=== PATIENT | female | born 1945 | race Caucasian/White ===

== ENCOUNTER 2018-04-20 11:30 | Emergency (ER) | payer MEDICARE ==
[2018-04-20 11:41] VITALS: TEMP 98.7
--- NOTE | 2018-04-20 12:10 | ED ---
General Adult HPI - General Chief complaint: Syncope Stated complaint: dizziness Time Seen by Provider: 04/20/18 11:44 Source: patient, RN notes reviewed, old records reviewed Mode of arrival: wheelchair Limitations: no limitations - History of Present Illness Initial comments: 72-year-old female presents status post fall. Patient states she had 2 falls this morning. First one she was walking along, lost her balance and fell onto her left hip. She was able to ambulate after this fall. She denies any preceding symptoms, no palpitations or chest pain. She did feel lightheaded after the fall. She has second fall similar circumstances with no specific injury. No head trauma. No neck pain. Patient denies any significant pain complaints, she does have some mild left hip pain. Patient has been eating and drinking normally. No vomiting or diarrhea. She states she has had an unsteady gait for the past 6 months. She does walk with a cane and occasionally loses her footing. She did not lose consciousness with either these episodes. - Related Data Home Medications Medication Instructions Recorded Confirmed Gabapentin [Neurontin] 300 mg PO BID 04/20/18 04/20/18 Venlafaxine HCl ER [Effexor Xr] 150 mg PO DAILY 04/20/18 04/20/18 Venlafaxine HCl [Effexor XR] 75 mg PO DAILY 04/20/18 04/20/18 buPROPion HCL [Wellbutrin SR] 150 mg PO BID 04/20/18 04/20/18 Allergies Allergy/AdvReac Type Severity Reaction Status Date / Time Penicillins AdvReac Rash/Hives Verified 04/20/18 12:53 Review of Systems ROS Statement: Those systems with pertinent positive or pertinent negative responses have been documented in the HPI. ROS Other: All systems not noted in ROS Statement are negative. Past Medical History Past Medical History: Diabetes Mellitus, Hyperlipidemia, Hypertension Additional Past Medical History / Comment(s): Irregular heartbeat, Neuropoathy History of Any Multi-Drug Resistant Organisms: None Reported Past Surgical History: Cholecystectomy, Orthopedic Surgery Past Psychological History: Depression Smoking Status: Former smoker Past Alcohol Use History: None Reported Past Drug Use History: None Reported General Exam Limitations: no limitations General appearance: alert, in no apparent distress Head exam: Present: atraumatic, normocephalic Eye exam: Present: normal appearance, PERRL, EOMI ENT exam: Present: normal exam Neck exam: Present: normal inspection. Absent: tenderness, meningismus Respiratory exam: Present: normal lung sounds bilaterally. Absent: respiratory distress, wheezes, rales Cardiovascular Exam: Present: regular rate, normal rhythm GI/Abdominal exam: Present: soft. Absent: distended, tenderness, guarding Extremities exam: Present: normal inspection, normal capillary refill. Absent: pedal edema Back exam: Present: normal inspection, full ROM. Absent: tenderness Neurological exam: Present: alert, oriented X3, CN II-XII intact, other (No ataxia). Absent: motor sensory deficit Psychiatric exam: Present: normal affect, normal mood Skin exam: Present: warm, dry, intact. Absent: cyanosis, diaphoretic Course Vital Signs 04/20/18 04/20/18 11:36 13:21 Temperature 98.7 F Pulse Rate 99 Pulse Rate [ 82 Sitting] Pulse Rate [ 86 Standing] Pulse Rate [ 80 Supine] Respiratory 18 Rate Blood Pressure 142/63 Blood Pressure 128/66 [Sitting] Blood Pressure 119/71 [Standing] Blood Pressure 125/77 [Supine] O2 Sat by Pulse 96 Oximetry EKG Findings - EKG Comments: EKG Findings:: EKG: Normal sinus rhythm, rate of 88, VT interval 148, QRS duration 82, QTC 404 Medical Decision Making - Medical Decision Making 72-year-old female presents with 2 episodes of lightheadedness and fall. She did have some mild hip pain but was ambulatory after the fall. X-rays of the chest and pelvis were obtained, these were negative for acute bony abnormality. Chest x-ray negative for airspace disease or pneumothorax. Laboratory studies reveal normal CBC, normal CMP, troponin is negative. Urinalysis is clear. She is mildly symptomatic with standing. She is given normal saline bolus and on reevaluation she was asymptomatic, steady on her feet. Gait appears normal. Patient will be discharged home. She will use her walker for increased stability. She will follow-up with her primary care physician. - Lab Data Result diagrams: 04/20/18 11:47 04/20/18 11:47 Lab Results 04/20/18 04/20/18 04/20/18 Range/Units 11:47 11:47 11:47 WBC 9.3 (3.8-10.6) k/uL RBC 4.17 (3.80-5.40) m/uL Hgb 13.7 (11.4-16.0) gm/dL Hct 39.4 (34.0-46.0) % MCV 94.5 (80.0-100.0) fL MCH 32.8 (25.0-35.0) pg MCHC 34.7 (31.0-37.0) g/dL RDW 13.8 (11.5-15.5) % Plt Count 286 (150-450) k/uL Neutrophils % 68 % Lymphocytes % 20 % Monocytes % 5 % Eosinophils % 4 % Basophils % 1 % Neutrophils # 6.3 (1.3-7.7) k/uL Lymphocytes # 1.9 (1.0-4.8) k/uL Monocytes # 0.5 (0-1.0) k/uL Eosinophils # 0.4 (0-0.7) k/uL Basophils # 0.1 (0-0.2) k/uL PT (9.0-12.0) sec INR (<1.2) APTT (22.0-30.0) sec Sodium 141 (137-145) mmol/L Potassium 4.7 (3.5-5.1) mmol/L Chloride 104 (98-107) mmol/L Carbon Dioxide 24 (22-30) mmol/L Anion Gap 13 mmol/L BUN 21 H (7-17) mg/dL Creatinine 0.89 (0.52-1.04) mg/dL Est GFR (CKD-EPI)AfAm 76 (>60 ml/min/1.73 sqM) Est GFR (CKD-EPI)NonAf 66 (>60 ml/min/1.73 sqM) Glucose 156 H (74-99) mg/dL Calcium 10.0 (8.4-10.2) mg/dL Magnesium 1.8 (1.6-2.3) mg/dL Total Bilirubin 0.7 (0.2-1.3) mg/dL AST 28 (14-36) U/L ALT 26 (9-52) U/L Alkaline Phosphatase 70 (38-126) U/L Total Creatine Kinase 63 (30-135) U/L CK-MB (CK-2) 1.6 (0.0-2.4) ng/mL CK-MB (CK-2) Rel Index 2.5 Troponin I <0.012 (0.000-0.034) ng/mL Total Protein 7.5 (6.3-8.2) g/dL Albumin 4.6 (3.5-5.0) g/dL Urine Color Urine Appearance (Clear) Urine pH (5.0-8.0) Ur Specific [place] (1.001-1.035) Urine Protein (Negative) Urine Glucose (UA) (Negative) Urine Ketones (Negative) Urine Blood (Negative) Urine Nitrite (Negative) Urine Bilirubin (Negative) Urine Urobilinogen (<2.0) mg/dL Ur Leukocyte Esterase (Negative) Urine RBC (0-5) /hpf Urine WBC (0-5) /hpf Ur Squamous Epith Cells (0-4) /hpf Urine Mucus (None) /hpf 04/20/18 04/20/18 Range/Units 11:47 12:50 WBC (3.8-10.6) k/uL RBC (3.80-5.40) m/uL Hgb (11.4-16.0) gm/dL Hct (34.0-46.0) % MCV (80.0-100.0) fL MCH (25.0-35.0) pg MCHC (31.0-37.0) g/dL RDW (11.5-15.5) % Plt Count (150-450) k/uL Neutrophils % % Lymphocytes % % Monocytes % % Eosinophils % % Basophils % % Neutrophils # (1.3-7.7) k/uL Lymphocytes # (1.0-4.8) k/uL Monocytes # (0-1.0) k/uL Eosinophils # (0-0.7) k/uL Basophils # (0-0.2) k/uL PT 9.6 (9.0-12.0) sec INR 1.0 (<1.2) APTT 22.2 (22.0-30.0) sec Sodium (137-145) mmol/L Potassium (3.5-5.1) mmol/L Chloride (98-107) mmol/L Carbon Dioxide (22-30) mmol/L Anion Gap mmol/L BUN (7-17) mg/dL Creatinine (0.52-1.04) mg/dL Est GFR (CKD-EPI)AfAm (>60 ml/min/1.73 sqM) Est GFR (CKD-EPI)NonAf (>60 ml/min/1.73 sqM) Glucose (74-99) mg/dL Calcium (8.4-10.2) mg/dL Magnesium (1.6-2.3) mg/dL Total Bilirubin (0.2-1.3) mg/dL AST (14-36) U/L ALT (9-52) U/L Alkaline Phosphatase (38-126) U/L Total Creatine Kinase (30-135) U/L CK-MB (CK-2) (0.0-2.4) ng/mL CK-MB (CK-2) Rel Index Troponin I (0.000-0.034) ng/mL Total Protein (6.3-8.2) g/dL Albumin (3.5-5.0) g/dL Urine Color Yellow Urine Appearance Clear (Clear) Urine pH 5.5 (5.0-8.0) Ur Specific [place] 1.015 (1.001-1.035) Urine Protein Negative (Negative) Urine Glucose (UA) Negative (Negative) Urine Ketones Negative (Negative) Urine Blood Negative (Negative) Urine Nitrite Negative (Negative) Urine Bilirubin Negative (Negative) Urine Urobilinogen <2.0 (<2.0) mg/dL Ur Leukocyte Esterase Small H (Negative) Urine RBC 1 (0-5) /hpf Urine WBC 3 (0-5) /hpf Ur Squamous Epith Cells <1 (0-4) /hpf Urine Mucus Rare H (None) /hpf Disposition Clinical Impression: Orthostatic dizziness Disposition: HOME SELF-CARE Condition: Good Instructions: Syncope (ED) Is patient prescribed a controlled substance at d/c from ED?: No Referrals: Heraclio Pearce DO [Primary Care Provider] - 1-2 days Time of Disposition: 14:10
[2018-04-20 12:19] LABS: Basophils # (A) 0.1 k/uL (0-0.2); Basophils % (A) 1 %; Eosinophils # (A) 0.4 k/uL (0-0.7); Eosinophils % (A) 4 %; HCT 39.4 % (34.0-46.0); HGB 13.7 gm/dL (11.4-16.0); Lymphocytes # (A) 1.9 k/uL (1.0-4.8); Lymphocytes % (A) 20 %; MCH 32.8 pg (25.0-35.0); MCHC 34.7 g/dL (31.0-37.0); MCV 94.5 fL (80.0-100.0); Mean Platelet Volume 7.1; Monocytes # (A) 0.5 k/uL (0-1.0); Monocytes % (A) 5 %; Neutrophils # (A) 6.3 k/uL (1.3-7.7); Neutrophils % (A) 68 %; Platelet Count 286 k/uL (150-450); RBC 4.17 m/uL (3.80-5.40); RDW 13.8 % (11.5-15.5); WBC 9.3 k/uL (3.8-10.6)
[2018-04-20 12:31] LABS: Partial Thromboplastin Time 22.2 sec (22.0-30.0); Prothrombin Time 9.6 sec (9.0-12.0)
[2018-04-20 12:33] LABS: Albumin 4.6 g/dL (3.5-5.0); Total Bilirubin 0.7 mg/dL (0.2-1.3); Total Protein 7.5 g/dL (6.3-8.2)
[2018-04-20 12:39] LABS: Creatine Kinase 63 U/L (30-135)
[2018-04-20 12:45] LABS: Magnesium 1.8 mg/dL (1.6-2.3); Potassium 4.7 mmol/L (3.5-5.1)
[2018-04-20 12:51] LABS: Creatine Kinase MB 1.6 ng/mL (0.0-2.4); Troponin I <0.012 ng/mL (0.000-0.034)
--- NOTE | 2018-04-20 13:08 | XR ---
EXAMINATION TYPE: XR chest 2V DATE OF EXAM: 04/20/2018 COMPARISON: NONE INDICATION: Pain from fall, syncope TECHNIQUE: Frontal and lateral views of the chest are obtained. FINDINGS: The heart size is normal. The pulmonary vasculature is normal. The lungs are clear. IMPRESSION: 1. No acute pulmonary process.
--- NOTE | 2018-04-20 13:08 | XR ---
EXAMINATION TYPE: XR pelvis AP view DATE OF EXAM: 04/20/2018 CLINICAL HISTORY: Pain after fall TECHNIQUE: A single AP view of the pelvis is obtained. COMPARISON: None. FINDINGS: There are bilateral femoral arthroplasties noted. There is no evidence of dislocation or marinelli rdware fracture. Lucency surrounding the acetabular component could relate to particle disease or loo sening. Moderate degenerative changes of the lumbosacral junction are seen. There is no acute fractur e/dislocation evident in the pelvis. The overlying soft tissue appears unremarkable. IMPRESSION: No evidence of acute fracture or dislocation of the pelvis. Lucency around the acetabular components of the arthroplasties could relate to particle disease or loosening. No evidence of hardw are fracture.
[2018-04-20 13:11] LABS: Appearance,Urine Clear (Clear); Bilirubin,Urine Negative (Negative); Blood,Urine Negative (Negative); Color,Urine Yellow; Glucose,Urine (UA) Negative (Negative); Ketones,Urine Negative (Negative); Leukocyte Esterase,Urine Small (Negative); Mucus,Urine Rare /hpf; Nitrite,Urine Negative (Negative); PH, Urine 5.5 (5.0-8.0); Protein,Urine Negative (Negative); RBC,Urine 1 /hpf (0-5); Specific Gravity,Urine 1.015 (1.001-1.035); Squamous Epithelial Cell,Urine <1 /hpf (0-4); Urobilinogen,Urine <2.0 mg/dL (<2.0); WBC,Urine 3 /hpf (0-5)
[2018-04-20] MEDS ORDERED: SODIUM CHLORIDE 0.9% 500 ML IV ONE (13:19)
[2018-04-20 14:23] VITALS: BP 121/66; PULSE 78; RESP 16
== END 2018-04-20 14:20 | disposition home or self-care (01) ==
LOC: EC 11:30
DX: R42 Dizziness and giddiness (principal); M25.552 Pain in left hip; R26.81 Unsteadiness on feet; G62.9 Polyneuropathy, unspecified; F32.9 Major depressive disorder, single episode, unspecified; Z87.891 Personal history of nicotine dependence; Z79.899 Other long term (current) drug therapy; Z88.0 Allergy status to penicillin; W19.XXXA Unspecified fall, initial encounter; Y93.01 Activity, walking, marching and hiking
CPT/HCPCS: 36415; 71046; 72170; 80053; 81001; 82550; 82553; 83735; 84484; 85025; 85610; 85730; 93005; 99284

== ENCOUNTER 2018-07-17 10:04 | Day surgery (SDC) | payer MEDICARE ==
[2018-07-14 09:37] VITALS: BMI 36.0
[~2018-07-17 10:04] MED LIST: LACTATED RINGERS 1,000 ML IV SCH
[2018-07-17] MEDS ORDERED: LIDOCAINE 1% 20 ML VIAL (10MG/ML) FOR IV START INTRADERMA ONE (11:08)
[2018-07-17 11:11] VITALS: TEMP 98.5
[2018-07-17 11:14] LABS: Glucose,Whole Blood 145 mg/dL (75-99)
[2018-07-17] MEDS ORDERED: PROPOFOL 10 MG/ML 20 ML VIAL IV ONE (12:46)
--- NOTE | 2018-07-17 13:23 | P.PCN ---
Date of Procedure: 07/17/18 Procedure(s) Performed: Procedure: Colonoscopy and polypectomy. Preoperative diagnosis: Screening for neoplasia, patient has history of polyps. Postoperative diagnosis: 1. Mild sigmoid diverticulosis with no evidence of acute diverticulitis or strictures. 2. Two polyps in the cecum snared but no large polyps or cancer. Preparation: HalfLytely prep. Sedation: Was provided by anesthesia. Brief clinical history: The patient is a 72-year old female who is scheduled for this evaluation for screening for neoplasia because of history of polyps. Her last exam was in 2012. She has no abdominal complaints, bleeding or anemia. Procedure: With the patient on her left lateral decubitus position and after informed consent and adequate sedation, the perianal area was inspected and it did not show any fissures or fistulas. There were no masses felt on digital rectal examination. The Olympus CFQ 160 AL videocolonoscope was then inserted in the rectum in the usual fashion and advanced to the cecum. There were few small diverticular orifices seen scattered in the sigmoid with no evidence of acute diverticulitis or strictures. 2 small polyps were seen in the cecum close to the right colon which were snared and retrieved by suction but there were no large polyps or cancer. The preparation was less than ideal and there could have been another small polyp or 2 that we could have missed because of the preparation. I retroflexed the endoscope in the rectum before the endoscope was withdrawn. Low-grade internal hemorrhoids were noted but there was no bleeding. The patient tolerated the procedure well. Plan: The patient was reassured. Discussed dietary measures and local care for hemorrhoids. She will follow-up with you as planned and I recommended repeat exam at a 76.
[2018-07-17 13:27] VITALS: BP 138/82; PULSE 82; RESP 18
== END 2018-07-17 14:03 | disposition home or self-care (01) ==
LOC: ORWHC2ENDO 10:04
DX: Z12.11 Encounter for screening for malignant neoplasm of colon (principal); K57.30 Diverticulosis of large intestine without perforation or abscess without bleeding; K64.8 Other hemorrhoids; D12.0 Benign neoplasm of cecum; Z86.010 Personal history of colon polyps; Z79.899 Other long term (current) drug therapy; I10 Essential (primary) hypertension; E78.5 Hyperlipidemia, unspecified; M19.90 Unspecified osteoarthritis, unspecified site; E11.40 Type 2 diabetes mellitus with diabetic neuropathy, unspecified; Z96.643 Presence of artificial hip joint, bilateral; Z88.0 Allergy status to penicillin
CPT/HCPCS: 88305; 45385; J2704

== ENCOUNTER → 2020-01-31 | Outpatient (CLI) | payer MEDICARE ==
--- NOTE | 2020-01-31 15:48 | XR ---
EXAMINATION TYPE: XR chest 2V DATE OF EXAM: 01/31/2020 COMPARISON: 04/20/2018 HISTORY: Positive TB test. TECHNIQUE: Frontal and lateral views of the chest are obtained. FINDINGS: There is no focal air space opacity, pleural effusion, or pneumothorax seen. The cardiac silhouette size is within normal limits. The osseous structures are intact. Cholecystectomy clips a re seen. No cavitary lesions are seen. IMPRESSION: No acute cardiopulmonary process. No radiographic sequela of tuberculosis identified.
== END | disposition home or self-care (01) ==
LOC: RAD 15:13
PROVIDERS: ATTEND Dermatology MOHS-Micrographic Surgery
DX: Z11.1 Encounter for screening for respiratory tuberculosis (principal)
CPT/HCPCS: 71046

== ENCOUNTER 2020-05-26 11:32 | Emergency (ER) | payer MEDICARE ==
[2020-05-26 11:59] VITALS: RESP 16
--- NOTE | 2020-05-26 12:25 | ED ---
Recheck HPI - General Chief Complaint: Recheck/Abnormal Lab/Rx Stated Complaint: covid test Time Seen by Provider: 05/26/20 12:00 Source: patient, RN notes reviewed, old records reviewed Mode of arrival: ambulatory Limitations: no limitations - History of Present Illness Initial Comments: Patient is a 74-year-old female presents return today with complaints of concern for runny nose and a minor cough for the past 2 weeks. She is concerned she may have COVID 19. She reports that "heaviness feeling on her chest sometimes with breathing. She reports her discomfort is 1/10. Patient states that she has history of diabetes and hypertension. She is a nonsmoker. She denies any GI symptoms including nausea vomiting or diarrhea. - Related Data Home Medications Medication Instructions Recorded Confirmed buPROPion HCL [Wellbutrin SR] 150 mg PO BID 04/20/18 05/26/20 Rifampin [Rifadin] 300 mg PO BID 05/26/20 05/26/20 Venlafaxine HCl ER [Effexor Xr] 75 mg PO DAILY 05/26/20 05/26/20 Allergies Allergy/AdvReac Type Severity Reaction Status Date / Time Penicillins AdvReac Rash/Hives Verified 05/26/20 13:12 Review of Systems ROS Statement: Those systems with pertinent positive or pertinent negative responses have been documented in the HPI. ROS Other: All systems not noted in ROS Statement are negative. Past Medical History Past Medical History: Diabetes Mellitus, Hyperlipidemia, Hypertension, Osteoarthritis (OA) Additional Past Medical History / Comment(s): Irregular heartbeat, Neuropoathy, DIET CONTROLLED -DIABETIC , History of Any Multi-Drug Resistant Organisms: None Reported Past Surgical History: Breast Surgery, Cholecystectomy, Hysterectomy, Joint Replacement, Orthopedic Surgery Additional Past Surgical History / Comment(s): RIGHT AND LEFT TOTAL HIP, BREAST BIOPSY Past Anesthesia/Blood Transfusion Reactions: Postoperative Nausea & Vomiting (PONV) Past Psychological History: Depression Smoking Status: Never smoker Past Alcohol Use History: None Reported Past Drug Use History: None Reported - Past Family History Mother Family Medical History: No Reported History General Exam - General Exam Comments Initial Comments: 74 year old female, no distress. Limitations: no limitations General appearance: alert, in no apparent distress Head exam: Present: atraumatic, normocephalic, normal inspection Eye exam: Present: normal appearance, PERRL, EOMI. Absent: scleral icterus, conjunctival injection, periorbital swelling ENT exam: Present: normal exam, mucous membranes moist Neck exam: Present: normal inspection. Absent: tenderness, meningismus, lymphadenopathy Respiratory exam: Present: normal lung sounds bilaterally. Absent: respiratory distress, wheezes, rales, rhonchi, stridor Cardiovascular Exam: Present: regular rate, normal rhythm, normal heart sounds. Absent: systolic murmur, diastolic murmur, rubs, gallop, clicks GI/Abdominal exam: Present: soft, normal bowel sounds. Absent: distended, tenderness, guarding, rebound, rigid Extremities exam: Present: normal inspection, full ROM, normal capillary refill. Absent: tenderness, pedal edema, joint swelling, calf tenderness Back exam: Present: normal inspection Neurological exam: Present: alert Psychiatric exam: Present: normal affect, normal mood Skin exam: Present: warm, dry, intact, normal color. Absent: rash Course Vital Signs 05/26/20 05/26/20 05/26/20 11:56 12:53 13:18 Temperature 98.2 F Pulse Rate 89 75 Respiratory 16 16 16 Rate Blood Pressure 130/73 123/60 O2 Sat by Pulse 97 99 Oximetry 05/26/20 05/26/20 14:00 14:40 Temperature 98.1 F Pulse Rate 84 73 Respiratory 16 16 Rate Blood Pressure 123/71 128/67 O2 Sat by Pulse 99 100 Oximetry Medical Decision Making - Medical Decision Making 74-year-old female presents emergency department today for concern for needing a covert test. She reports a runny nose general fatigue and discomfort in the chest with breathing and is time for the past 2 weeks. At this time patient's labwork was reviewed and unremarkable. She was APPROPRIATE. She has normal vital signs and no fever. - Lab Data Result diagrams: 05/26/20 12:50 05/26/20 12:50 Lab Results 05/26/20 05/26/20 05/26/20 Range/Units 12:30 12:50 12:50 WBC 7.8 (3.8-10.6) k/uL RBC 4.05 (3.80-5.40) m/uL Hgb 13.1 (11.4-16.0) gm/dL Hct 38.9 (34.0-46.0) % MCV 96.1 (80.0-100.0) fL MCH 32.4 (25.0-35.0) pg MCHC 33.7 (31.0-37.0) g/dL RDW 13.8 (11.5-15.5) % Plt Count 232 (150-450) k/uL Neutrophils % 67 % Lymphocytes % 18 % Monocytes % 6 % Eosinophils % 5 % Basophils % 1 % Neutrophils # 5.3 (1.3-7.7) k/uL Lymphocytes # 1.4 (1.0-4.8) k/uL Monocytes # 0.5 (0-1.0) k/uL Eosinophils # 0.4 (0-0.7) k/uL Basophils # 0.1 (0-0.2) k/uL PT 9.6 (9.0-12.0) sec INR 0.9 (<1.2) APTT 23.1 (22.0-30.0) sec D-Dimer 0.48 (<0.60) mg/L FEU Sodium (137-145) mmol/L Potassium (3.5-5.1) mmol/L Chloride (98-107) mmol/L Carbon Dioxide (22-30) mmol/L Anion Gap mmol/L BUN (7-17) mg/dL Creatinine (0.52-1.04) mg/dL Est GFR (CKD-EPI)AfAm (>60 ml/min/1.73 sqM) Est GFR (CKD-EPI)NonAf (>60 ml/min/1.73 sqM) Glucose (74-99) mg/dL Plasma Lactic Acid Juan (0.7-2.0) mmol/L Calcium (8.4-10.2) mg/dL Magnesium (1.6-2.3) mg/dL Ferritin (10.0-291.0) ng/mL Total Bilirubin (0.2-1.3) mg/dL AST (14-36) U/L ALT (4-34) U/L Alkaline Phosphatase (38-126) U/L Lactate Dehydrogenase (313-618) U/L Troponin I (0.000-0.034) ng/mL C-Reactive Protein (<10.0) mg/L Total Protein (6.3-8.2) g/dL Albumin (3.5-5.0) g/dL Procalcitonin (0.02-0.09) ng/mL Coronavirus (PCR) Not Detected (Not Detected) 05/26/20 05/26/20 05/26/20 Range/Units 12:50 12:50 12:50 WBC (3.8-10.6) k/uL RBC (3.80-5.40) m/uL Hgb (11.4-16.0) gm/dL Hct (34.0-46.0) % MCV (80.0-100.0) fL MCH (25.0-35.0) pg MCHC (31.0-37.0) g/dL RDW (11.5-15.5) % Plt Count (150-450) k/uL Neutrophils % % Lymphocytes % % Monocytes % % Eosinophils % % Basophils % % Neutrophils # (1.3-7.7) k/uL Lymphocytes # (1.0-4.8) k/uL Monocytes # (0-1.0) k/uL Eosinophils # (0-0.7) k/uL Basophils # (0-0.2) k/uL PT (9.0-12.0) sec INR (<1.2) APTT (22.0-30.0) sec D-Dimer (<0.60) mg/L FEU Sodium 138 (137-145) mmol/L Potassium 4.1 (3.5-5.1) mmol/L Chloride 107 (98-107) mmol/L Carbon Dioxide 24 (22-30) mmol/L Anion Gap 7 mmol/L BUN 22 H (7-17) mg/dL Creatinine 0.85 (0.52-1.04) mg/dL Est GFR (CKD-EPI)AfAm 79 (>60 ml/min/1.73 sqM) Est GFR (CKD-EPI)NonAf 68 (>60 ml/min/1.73 sqM) Glucose 191 H (74-99) mg/dL Plasma Lactic Acid Juan 1.2 (0.7-2.0) mmol/L Calcium 9.5 (8.4-10.2) mg/dL Magnesium 1.8 (1.6-2.3) mg/dL Ferritin 178.6 (10.0-291.0) ng/mL Total Bilirubin 0.8 (0.2-1.3) mg/dL AST 20 (14-36) U/L ALT 17 (4-34) U/L Alkaline Phosphatase 87 (38-126) U/L Lactate Dehydrogenase 478 (313-618) U/L Troponin I <0.012 (0.000-0.034) ng/mL C-Reactive Protein 7.8 (<10.0) mg/L Total Protein 7.2 (6.3-8.2) g/dL Albumin 4.3 (3.5-5.0) g/dL Procalcitonin (0.02-0.09) ng/mL Coronavirus (PCR) (Not Detected) 05/26/20 Range/Units 12:50 WBC (3.8-10.6) k/uL RBC (3.80-5.40) m/uL Hgb (11.4-16.0) gm/dL Hct (34.0-46.0) % MCV (80.0-100.0) fL MCH (25.0-35.0) pg MCHC (31.0-37.0) g/dL RDW (11.5-15.5) % Plt Count (150-450) k/uL Neutrophils % % Lymphocytes % % Monocytes % % Eosinophils % % Basophils % % Neutrophils # (1.3-7.7) k/uL Lymphocytes # (1.0-4.8) k/uL Monocytes # (0-1.0) k/uL Eosinophils # (0-0.7) k/uL Basophils # (0-0.2) k/uL PT (9.0-12.0) sec INR (<1.2) APTT (22.0-30.0) sec D-Dimer (<0.60) mg/L FEU Sodium (137-145) mmol/L Potassium (3.5-5.1) mmol/L Chloride (98-107) mmol/L Carbon Dioxide (22-30) mmol/L Anion Gap mmol/L BUN (7-17) mg/dL Creatinine (0.52-1.04) mg/dL Est GFR (CKD-EPI)AfAm (>60 ml/min/1.73 sqM) Est GFR (CKD-EPI)NonAf (>60 ml/min/1.73 sqM) Glucose (74-99) mg/dL Plasma Lactic Acid Juan (0.7-2.0) mmol/L Calcium (8.4-10.2) mg/dL Magnesium (1.6-2.3) mg/dL Ferritin (10.0-291.0) ng/mL Total Bilirubin (0.2-1.3) mg/dL AST (14-36) U/L ALT (4-34) U/L Alkaline Phosphatase (38-126) U/L Lactate Dehydrogenase (313-618) U/L Troponin I (0.000-0.034) ng/mL C-Reactive Protein (<10.0) mg/L Total Protein (6.3-8.2) g/dL Albumin (3.5-5.0) g/dL Procalcitonin 0.06 (0.02-0.09) ng/mL Coronavirus (PCR) (Not Detected) 05/26/20 12:37 EKG shows normal sinus rhythm normal EKG. Ventricular rate 81 bpm. Pulse 154 ms. QRS duration is 74 ms. QT QTc is 382/443 ms. - Radiology Data Radiology results: report reviewed Chest x-ray shows chronic changes without any evidence of acute pulmonary disease. Disposition Clinical Impression: Fatigue, Rhinorrhea Disposition: HOME SELF-CARE Condition: Good Instructions (If sedation given, give patient instructions): Fatigue (ED) Additional Instructions: Please use medication as discussed such as tylenol and nasal decongestant spray. Please follow up with family doctor if symptoms have not improved over the next two days. Please return to the emergency room if your symptoms increase or worsen or for any other concerns. Is patient prescribed a controlled substance at d/c from ED?: No Referrals: Heraclio Pearce DO [Primary Care Provider] - 1-2 days Time of Disposition: 14:26
[2020-05-26 13:08] LABS: Basophils # (A) 0.1 k/uL (0-0.2); Basophils % (A) 1 %; Eosinophils # (A) 0.4 k/uL (0-0.7); Eosinophils % (A) 5 %; HCT 38.9 % (34.0-46.0); HGB 13.1 gm/dL (11.4-16.0); Lymphocytes # (A) 1.4 k/uL (1.0-4.8); Lymphocytes % (A) 18 %; MCH 32.4 pg (25.0-35.0); MCHC 33.7 g/dL (31.0-37.0); MCV 96.1 fL (80.0-100.0); Mean Platelet Volume 7.8; Monocytes # (A) 0.5 k/uL (0-1.0); Monocytes % (A) 6 %; Neutrophils # (A) 5.3 k/uL (1.3-7.7); Neutrophils % (A) 67 %; Platelet Count 232 k/uL (150-450); RBC 4.05 m/uL (3.80-5.40); RDW 13.8 % (11.5-15.5); WBC 7.8 k/uL (3.8-10.6)
[2020-05-26 13:20] LABS: Albumin 4.3 g/dL (3.5-5.0); C Reactive Protein 7.8 mg/L (<10.0); Calcium 9.5 mg/dL (8.4-10.2); Magnesium 1.8 mg/dL (1.6-2.3); Potassium 4.1 mmol/L (3.5-5.1); Total Bilirubin 0.8 mg/dL (0.2-1.3); Total Protein 7.2 g/dL (6.3-8.2)
[2020-05-26 13:25] LABS: D-Dimer 0.48 mg/L FEU (<0.60); INR 0.9 (<1.2); Partial Thromboplastin Time 23.1 sec (22.0-30.0); Prothrombin Time 9.6 sec (9.0-12.0)
--- NOTE | 2020-05-26 13:26 | XR ---
EXAMINATION TYPE: XR chest 1V portable DATE OF EXAM: 05/26/2020 HISTORY: Shortness of breath. COMPARISON: 01/31/2020 TECHNIQUE: Single view of the chest is submitted. FINDINGS: Demonstrated are scattered senescent parenchymal change. There is no evidence for focal infiltrate. The heart is stable. Hilar and mediastinal structures are within normal limits. Degenerative changes are seen of the dorsal spine. IMPRESSION: 1. Chronic changes without evidence for acute pulmonary disease.
[2020-05-26 14:41] VITALS: BP 128/67; PULSE 73; TEMP 98.1
[2020-05-26 23:26] LABS: Ferritin 178.6 ng/mL (10.0-291.0)
== END 2020-05-26 14:40 | disposition home or self-care (01) ==
LOC: EC 11:32
DX: J34.89 Other specified disorders of nose and nasal sinuses (principal); R53.83 Other fatigue; Z20.828 Contact with and (suspected) exposure to other viral communicable diseases; E11.9 Type 2 diabetes mellitus without complications; F32.9 Major depressive disorder, single episode, unspecified; Z79.899 Other long term (current) drug therapy; Z88.0 Allergy status to penicillin
CPT/HCPCS: 36415; 93005; 85379; 80053; 82728; 83605; 83615; 83735; 84484; 85025; 85610; 85730; 86140; 87040; 84145; 71045; 99284; U0003

== ENCOUNTER 2020-08-23 04:35 | Emergency (ER) | payer MEDICARE ==
[2020-08-23 04:41] VITALS: TEMP 99
[2020-08-23] MEDS ORDERED: MORPHINE SULFATE 4 MG/ML SYRINGE IV STA (05:41)
[2020-08-23 06:12] LABS: Basophils % (A) 0 %; Eosinophils # (A) 0.1 k/uL (0-0.7); Eosinophils % (A) 1 %; HGB 11.1 gm/dL (11.4-16.0); Lymphocytes # (A) 1.4 k/uL (1.0-4.8); Lymphocytes % (A) 12 %; MCH 30.6 pg (25.0-35.0); MCHC 33.5 g/dL (31.0-37.0); MCV 91.3 fL (80.0-100.0); Mean Platelet Volume 7.5; Monocytes # (A) 0.7 k/uL (0-1.0); Monocytes % (A) 6 %; Neutrophils # (A) 9.9 k/uL (1.3-7.7); Neutrophils % (A) 81 %; Platelet Count 310 k/uL (150-450); Poikilocytosis Slight; RBC 3.62 m/uL (3.80-5.40); RDW 13.9 % (11.5-15.5); WBC 12.3 k/uL (3.8-10.6)
[2020-08-23 06:38] LABS: Albumin 3.8 g/dL (3.5-5.0); Calcium 9.4 mg/dL (8.4-10.2); Potassium 4.2 mmol/L (3.5-5.1); Total Bilirubin 0.7 mg/dL (0.2-1.3); Total Protein 6.9 g/dL (6.3-8.2); Uric Acid 5.4 mg/dL (3.7-7.4)
[2020-08-23 07:17] LABS: C Reactive Protein 201.1 mg/L (<10.0)
[2020-08-23] MEDS ORDERED: predniSONE 20 MG TAB PO STA (07:42)
[2020-08-23] MEDS ORDERED: CEPHALEXIN 500 MG CAP PO STA (07:43)
[2020-08-23] MEDS ORDERED: GABAPENTIN 300 MG CAP PO STA (07:43)
--- NOTE | 2020-08-23 07:49 | ED ---
General Adult HPI - General Chief complaint: Extremity Injury, Lower Stated complaint: Foot pain Time Seen by Provider: 08/23/20 04:44 Source: patient, EMS Mode of arrival: EMS Limitations: physical limitation - History of Present Illness Initial comments: This patient is a 75-year-old woman who presents with complaint of Bilateral forefoot pain. She states that it had come on gradually over the past 3-4 days. She has also noticed that the area is becoming very tender. She is having pain when she attempts to walk. No systemic symptoms. No fever or chills. No chest pain, palpitations, dyspnea or cough. No abdominal pain, nausea or vomiting. She has not had weight change. Onset/Timin -: days(s) Location: left, right, lower extremity Radiation: non-radiation Quality: aching Consistency: constant Improves with: none Worsens with: other (Walking) Associated Symptoms: denies other symptoms Treatments Prior to Arrival: none - Related Data Home Medications Medication Instructions Recorded Confirmed buPROPion HCL [Wellbutrin SR] 150 mg PO BID 04/20/18 05/26/20 Venlafaxine HCl ER [Effexor Xr] 75 mg PO DAILY 05/26/20 05/26/20 rifAMPin [Rifadin] 300 mg PO BID 05/26/20 05/26/20 Previous Rx's Medication Instructions Recorded Sulfamethox-Tmp 800-160Mg [Bactrim 1 each PO Q12HR #14 tab 08/23/20 Ds] predniSONE 60 mg PO DAILY #30 tab 08/23/20 Allergies Allergy/AdvReac Type Severity Reaction Status Date / Time Penicillins AdvReac Rash/Hives Verified 08/23/20 04:41 Review of Systems ROS Statement: Those systems with pertinent positive or pertinent negative responses have been documented in the HPI. ROS Other: All systems not noted in ROS Statement are negative. Constitutional: Denies: fever, chills Respiratory: Denies: cough, dyspnea Cardiovascular: Denies: chest pain, palpitations, orthopnea, edema, syncope Gastrointestinal: Denies: abdominal pain, nausea, vomiting, diarrhea Genitourinary: Denies: dysuria, hematuria Musculoskeletal: Reports: as per HPI, arthralgia. Denies: back pain Skin: Denies: rash Neurological: Denies: headache, weakness, numbness Past Medical History Past Medical History: Diabetes Mellitus, Hyperlipidemia, Hypertension, Osteoa rthritis (OA) Additional Past Medical History / Comment(s): Irregular heartbeat, Neuropoathy, DIET CONTROLLED -DIABETIC , History of Any Multi-Drug Resistant Organisms: None Reported Past Surgical History: Breast Surgery, Cholecystectomy, Hysterectomy, Joint Replacement, Orthopedic Surgery Additional Past Surgical History / Comment(s): RIGHT AND LEFT TOTAL HIP, BREAST BIOPSY Past Anesthesia/Blood Transfusion Reactions: Postoperative Nausea & Vomiting (PONV) Past Psychological History: Depression Smoking Status: Never smoker Past Alcohol Use History: None Reported Past Drug Use History: None Reported - Past Family History Mother Family Medical History: No Reported History General Exam Limitations: physical limitation General appearance: alert, in no apparent distress Head exam: Present: atraumatic, normocephalic Eye exam: Present: normal appearance. Absent: scleral icterus, conjunctival inj ection ENT exam: Present: normal oropharynx Neck exam: Present: normal inspection, full ROM Respiratory exam: Present: normal lung sounds bilaterally. Absent: respiratory distress, wheezes, rales, rhonchi, stridor Cardiovascular Exam: Present: regular rate, normal rhythm, normal heart sounds. Absent: systolic murmur, diastolic murmur, rubs, gallop GI/Abdominal exam: Present: soft. Absent: distended, tenderness, guarding, rebound, mass Extremities exam: Present: tenderness (To the bilateral forefoot, especially MTP joint), normal capillary refill. Absent: pedal edema, calf tenderness Back exam: Present: normal inspection. Absent: CVA tenderness (R), CVA tenderness (L) Neurological exam: Present: alert. Absent: motor sensory deficit Skin exam: Present: warm, dry, intact, erythema (Mild erythema over first MTP joint bilaterally). Absent: rash Course Vital Signs 08/23/20 08/23/20 08/23/20 04:37 06:00 07:50 Temperature 99.0 F Pulse Rate 102 H 97 90 Respiratory 16 16 18 Rate Blood Pressure 124/60 134/66 119/66 O2 Sat by Pulse 94 L 99 100 Oximetry Medical Decision Making - Medical Decision Making Patient 75-year-old woman presenting with bilateral forefoot pain. No definite diagnosis here but suspect inflammatory condition possibly gout. At this point not clinically resembling septic arthritis. I discussed overnight admission for further evaluation, but patient states that this point she is feeling better. Patient started with medication and discussed appropriate further care and follow-up. - Lab Data Result diagrams: 08/23/20 05:48 08/23/20 05:48 Lab Results 08/23/20 08/23/20 Range/Units 05:48 05:48 WBC 12.3 H (3.8-10.6) k/uL RBC 3.62 L (3.80-5.40) m/uL Hgb 11.1 L (11.4-16.0) gm/dL Hct 33.0 L (34.0-46.0) % MCV 91.3 (80.0-100.0) fL MCH 30.6 (25.0-35.0) pg MCHC 33.5 (31.0-37.0) g/dL RDW 13.9 (11.5-15.5) % Plt Count 310 (150-450) k/uL Neutrophils % 81 % Lymphocytes % 12 % Monocytes % 6 % Eosinophils % 1 % Basophils % 0 % Neutrophils # 9.9 H (1.3-7.7) k/uL Lymphocytes # 1.4 (1.0-4.8) k/uL Monocytes # 0.7 (0-1.0) k/uL Eosinophils # 0.1 (0-0.7) k/uL Basophils # 0.0 (0-0.2) k/uL Poikilocytosis Slight Sodium 133 L (137-145) mmol/L Potassium 4.2 (3.5-5.1) mmol/L Chloride 100 (98-107) mmol/L Carbon Dioxide 26 (22-30) mmol/L Anion Gap 7 mmol/L BUN 18 H (7-17) mg/dL Creatinine 0.87 (0.52-1.04) mg/dL Est GFR (CKD-EPI)AfAm 77 (>60 ml/min/1.73 sqM) Est GFR (CKD-EPI)NonAf 66 (>60 ml/min/1.73 sqM) Glucose 246 H (74-99) mg/dL Uric Acid 5.4 (3.7-7.4) mg/dL Calcium 9.4 (8.4-10.2) mg/dL Total Bilirubin 0.7 (0.2-1.3) mg/dL AST 17 (14-36) U/L ALT 13 (4-34) U/L Alkaline Phosphatase 76 (38-126) U/L C-Reactive Protein 201.1 H (<10.0) mg/L Total Protein 6.9 (6.3-8.2) g/dL Albumin 3.8 (3.5-5.0) g/dL Disposition Clinical Impression: Polyarthralgia Disposition: HOME SELF-CARE Condition: Fair Instructions (If sedation given, give patient instructions): Arthralgia (ED) Prescriptions: Sulfamethox-Tmp 800-160Mg [Bactrim Ds] 1 each PO Q12HR #14 tab predniSONE 60 mg PO DAILY #30 tab Is patient prescribed a controlled substance at d/c from ED?: No Referrals: Heraclio Pearce DO [Primary Care Provider] - 1-2 days
[2020-08-23 07:51] VITALS: BP 119/66; PULSE 90; RESP 18
== END 2020-08-23 07:52 | disposition home or self-care (01) ==
LOC: EC 04:35
DX: M79.672 Pain in left foot (principal); M79.671 Pain in right foot; F32.9 Major depressive disorder, single episode, unspecified; Z79.899 Other long term (current) drug therapy; Z88.0 Allergy status to penicillin; Z96.643 Presence of artificial hip joint, bilateral
CPT/HCPCS: 36415; 80053; 84550; 85025; 86140; 87040; 99283; 96374; J2270; J7512

== ENCOUNTER 2021-11-19 09:49 | Emergency (ER) | payer MEDICARE ==
[2021-11-19 09:57] VITALS: BP 153/70; PULSE 88; RESP 18; TEMP 98.5
--- NOTE | 2021-11-19 10:55 | ED ---
General Adult HPI - General Source: patient Mode of arrival: ambulatory Limitations: no limitations <Joel Chen - Last Filed: 11/19/21 11:24> <Lily Oliveira - Last Filed: 11/20/21 20:43> - General Chief complaint: Upper Respiratory Infection Stated complaint: Covid test Time Seen by Provider: 11/19/21 10:52 - History of Present Illness Initial comments: 76-year-old female with a past medical history of diabetes mellitus, hyperlipidemia, hypertension presents to the emergency room for a chief complaint of not feeling well. Patient has had mild symptoms for the past few days. States she had an exposure to COVID-19 5 days ago and is concerned she could have COVID-19. Patient has had mild headaches however these resolved yesterday. She has had some slight nausea. His abdominal pain. Denies chest pain or shortness of breath. Patient is requesting COVID-19 test. Patient has no other complaints at this time including shortness of breath, chest pain, nausea or vomiting, headache, or visual changes. (Joel Chen) - Related Data Home Medications Medication Instructions Recorded Confirmed buPROPion HCL [Wellbutrin SR] 150 mg PO BID 04/20/18 05/26/20 Venlafaxine HCl ER [Effexor Xr] 75 mg PO DAILY 05/26/20 05/26/20 rifAMPin [Rifadin] 300 mg PO BID 05/26/20 05/26/20 Previous Rx's Medication Instructions Recorded Sulfamethox-Tmp 800-160Mg [Bactrim 1 each PO Q12HR #14 tab 08/23/20 Ds] predniSONE 60 mg PO DAILY #30 tab 08/23/20 Allergies Allergy/AdvReac Type Severity Reaction Status Date / Time Penicillins AdvReac Rash/Hives Verified 11/19/21 09:53 Review of Systems ROS Other: All systems not noted in ROS Statement are negative. <Joel Chen - Last Filed: 11/19/21 11:24> ROS Other: All systems not noted in ROS Statement are negative. <Lily Oliveira - Last Filed: 11/20/21 20:43> ROS Statement: Those systems with pertinent positive or pertinent negative responses have been documented in the HPI. Past Medical History Past Medical History: Diabetes Mellitus, Hyperlipidemia, Hypertension, Osteoarthritis (OA) Additional Past Medical History / Comment(s): Irregular heartbeat, Neuropoathy, DIET CONTROLLED -DIABETIC , History of Any Multi-Drug Resistant Organisms: None Reported Past Surgical History: Breast Surgery, Cholecystectomy, Hysterectomy, Joint Replacement, Orthopedic Surgery Additional Past Surgical History / Comment(s): RIGHT AND LEFT TOTAL HIP, BREAST BIOPSY Past Anesthesia/Blood Transfusion Reactions: Postoperative Nausea & Vomiting (PONV) Past Psychological History: Depression Smoking Status: Never smoker Past Alcohol Use History: None Reported Past Drug Use History: None Reported - Past Family History Mother Family Medical History: No Reported History <Joel Chen - Last Filed: 11/19/21 11:24> General Exam Limitations: no limitations General appearance: alert, in no apparent distress Head exam: Present: atraumatic Eye exam: Present: normal appearance, PERRL, EOMI. Absent: scleral icterus, conjunctival injection ENT exam: Present: normal exam, mucous membranes moist Neck exam: Present: normal inspection, full ROM. Absent: tenderness Respiratory exam: Present: normal lung sounds bilaterally. Absent: respiratory distress, wheezes Cardiovascular Exam: Present: regular rate, normal rhythm, normal heart sounds GI/Abdominal exam: Present: soft, normal bowel sounds. Absent: distended, tenderness Neurological exam: Present: alert <Joel Chen - Last Filed: 11/19/21 11:24> Course Vital Signs 11/19/21 09:54 Temperature 98.5 F Pulse Rate 88 Respiratory 18 Rate Blood Pressure 153/70 O2 Sat by Pulse 97 Oximetry Medical Decision Making <Joel Chen - Last Filed: 11/19/21 11:24> <Lily Oliveira - Last Filed: 11/20/21 20:43> - Medical Decision Making Vitals are stable. Patient is well-appearing. COVID-19 test was negative. Patient does not want any additional management, states she will come back if her symptoms worsen. She just wanted the COVID-19 yesterday. She will follow- up with her doctor and return here as needed. (Joel Chen) I was available for consultation in the emergency department. The history and physical exam were done by the midlevel provider. I was consulted for this patients care. I reviewed the case with the midlevel provider and based on their presentation of the patient, I agree with the assessment, medical decision making and plan of care as documented. Chart was dictated using [employer] dictation software. Attempts were made to correct any dictation errors however some typographical errors may persist. Patient was seen during a national state of emergency due to the Covid-19 pandemic. (Lily Oliveira) - Lab Data Lab Results 11/19/21 Range/Units 10:00 Coronavirus (PCR) Not Detected (Not Detectd) Disposition Is patient prescribed a controlled substance at d/c from ED?: No Time of Disposition: 10:54 <Joel Chen - Last Filed: 11/19/21 11:24> <Lily Oliveira - Last Filed: 11/20/21 20:43> Clinical Impression: Lab test negative for COVID-19 virus Disposition: HOME SELF-CARE Condition: Good Instructions (If sedation given, give patient instructions): Coronavirus Disease 2019 (COVID-19) Additional Instructions: please follow-up with your doctor in one to 2 days. Return to the emergency room for any worsening symptoms. Referrals: Heraclio Pearce DO [Primary Care Provider] - 1-2 days
== END 2021-11-19 11:25 | disposition home or self-care (01) ==
LOC: EC 09:49
DX: Z20.822 Contact with and (suspected) exposure to COVID-19 (principal); E11.9 Type 2 diabetes mellitus without complications; E78.5 Hyperlipidemia, unspecified; I10 Essential (primary) hypertension; M19.90 Unspecified osteoarthritis, unspecified site; F32.A Depression, unspecified; Z88.0 Allergy status to penicillin; Z90.49 Acquired absence of other specified parts of digestive tract; Z90.710 Acquired absence of both cervix and uterus
CPT/HCPCS: 87635; 99284

== ENCOUNTER → 2023-03-30 | Outpatient (CLI) | payer MEDICARE ==
[2023-03-30 09:16] VITALS: BP 130/76; PULSE 107; RESP 17; TEMP 98.2
--- NOTE | 2023-03-30 09:21 | P.GSHP ---
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 Pearce regarding a right breast invasive ductal carcinoma. She underwent a bilateral screening mammogram on 3323. This led to additional views of the right breast [place] [address], and an ultrasound be performed on 4523. No lesions of concern were noted in the left breast. In the right breast a 0.9 cm round mass was identified. Although she had undergone a core biopsy in the vicinity in 2001 [place] [address]. Core biopsy revealed invasive ductal carcinoma which was ER/NH positive and HER-2 negative. She cannot feel any lumpsor nodules of concern in either breast. She does feel some nodularity now in the right breast related to the prior ultrasound core biopsy. She has not had any surgery on her breast. She did have a core biopsy in 2001 on the right breast which was benign. She has not had any recent trauma or infection in the breast. She is not complaining of any nipple discharge or skin changes. Caffeine: occasional nicotine: none chocolate: occasional BCP: 8 years Family History: mother: lung cancer (smoker) Hormonal History: menarche: 14 , breast fed: no, age at first :18 menopause: 54 Surgical History: bilateral hip replacement gallbladder hysterectomy took ovaries, no cancer Medical History: depression diabetes Social History: nicotine: none alcohol: none drugs: none - Constitutional Constitutional: Denies chills, Denies fever - EENT Eyes: denies blurred vision, denies pain Ears: bilateral: decreased hearing, deny: tinnitus Ears, nose, mouth and throat: Denies headache, Denies sore throat - Breasts Breasts: bilateral: as per HPI - Cardiovascular Cardiovascular: Denies chest pain, Denies shortness of breath - Respiratory Respiratory: Reports cough - Gastrointestinal Gastrointestinal: Denies abdominal pain, Denies diarrhea, Denies nausea, Denies vomiting - Genitourinary (Female) Genitourinary: Denies dysuria, Denies hematuria - Menstruation Menstruation: Reports postmenopausal - Musculoskeletal Comment: uses a cane to walk Musculoskeletal: Reports myalgias - Integumentary Integumentary: Denies pruritus, Denies rash - Neurological Neurological: Denies numbness, Denies weakness - Psychiatric Psychiatric: Reports anxiety, Reports depression - Endocrine Comment: diabetes Endocrine: Reports fatigue - Hematologic/Lymphatic Comment: none - Allergic/Immunologic Allergic/Immunologic: Reports as per HPI Past Medical History Past Medical History: Diabetes Mellitus, Hyperlipidemia, Osteoarthritis (OA) Additional Past Medical History / Comment(s): Irregular heartbeat, Neuropoathy, Type 2 DM History of Any Multi-Drug Resistant Organisms: None Reported Past Surgical History: Breast Surgery, Cholecystectomy, Hysterectomy, Joint Replacement, Orthopedic Surgery Additional Past Surgical History / Comment(s): RIGHT AND LEFT TOTAL HIP, BREAST BIOPSY Past Anesthesia/Blood Transfusion Reactions: Postoperative Nausea & Vomiting (PONV) Past Psychological History: Anxiety, Depression Smoking Status: Never smoker Past Alcohol Use History: None Reported Past Drug Use History: None Reported - Past Family History Mother Family Medical History: No Reported History Medications and Allergies Home Medications Medication Instructions Recorded Confirmed Type buPROPion HCL [Wellbutrin SR] 150 mg PO BID 04/20/18 03/03/23 History Venlafaxine HCl ER [Effexor Xr] 75 mg PO DAILY 05/26/20 03/03/23 History Multivit with Calcium,Iron,Min 1 each PO DAILY 03/03/23 03/03/23 History [Women's Multivitamin] metFORMIN HCL [metFORMIN HCL ER 500 mg PO DAILY 03/03/23 03/03/23 History Osmotic] Allergies Allergy/AdvReac Type Severity Reaction Status Date / Time Penicillins AdvReac Rash/Hives Verified 03/03/23 13:08 Surgical - Exam - General no distress - Eyes normal ocular movement - ENT no hearing loss - Neck trachea midline - Respiratory normal respiratory effort, clear to auscultation - Cardiovascular Rhythm: regular Heart Sounds: normal: S1, S2 - Abdomen Abdomen: soft, non tender, no guarding, no rigid, no rebound - Integumentary normal turgor - Neurologic no disoriented, no combative - Musculoskeletal uses a cane - Psychiatric oriented to time, oriented to person, oriented to place, speech is normal, memory intact Breast Exam: BRA: 42D Inspection: bilateral grade 3 ptosis Right breast: Slightly smaller than the left breast ecchymosis related to recent biopsy Palpation: Right breast: Multi-positional exam nodularity in the 3 o'clock position approximately 1-1-1/2 cm in size, ecchymosis at this site and probable hematoma, no other dominant masses or nodules of concern, fibrocystic changes biopsy site no evidence of infection Right axilla: No adenopathy of concern Left breast: Multi-positional exam no dominant masses or nodules of concern Left axilla: No adenopathy of concern Results Mammogram personally reviewed Assessment and Plan Assessment: Impression: Right breast stage IA T1 N0 M0 ER positive NH positive HER-2/yenny negative grade 1 invasive ductal carcinoma Diabetes Bilateral hip replacement/uses a cane Plan: Presentation of case at tumor board CC: Dr. Pearce
== END ==
LOC: WWCWWP 08:56
PROVIDERS: ATTEND Surgery
DX: C50.911 Malignant neoplasm of unspecified site of right female breast (principal); E11.9 Type 2 diabetes mellitus without complications; F32.A Depression, unspecified; F41.9 Anxiety disorder, unspecified; M19.90 Unspecified osteoarthritis, unspecified site; E78.5 Hyperlipidemia, unspecified; Z88.0 Allergy status to penicillin

== ENCOUNTER → 2023-04-29 | Outpatient (CLI) | payer MEDICARE ==
--- NOTE | 2023-04-29 13:22 | P.PN ---
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 Pearce regarding a right breast invasive ductal carcinoma. She underwent a bilateral screening mammogram on 3323. This led to additional views of the right breast [place] [address], and an ultrasound be performed on 45. No lesions of concern were noted in the left breast. In the right breast a 0.9 cm round mass was identified. Although she had undergone a core biopsy in the vicinity in 2001 [place] biopsy [place] [address]. Core biopsy revealed invasive ductal carcinoma which was ER/VT positive and HER-2 negative. She cannot feel any lumpsor nodules of concern in either breast. She does feel some nodularity now in the right breast related to the prior ultrasound core biopsy. She has not had any surgery on her breast. She did have a core biopsy in 2001 on the right breast which was benign. She has not had any recent trauma or infection in the breast. She is not complaining of any nipple discharge or skin changes. The patient's case was presented at tumor board and [id number]. Recommendation was for needle localization and lumpectomy. No sentinel node biopsy was recommended. The patient will follow with medical and radiation oncology. The patient has been called and this has been discussed with her and her OR date is set at 05/10/2023. Caffeine: occasional nicotine: none chocolate: occasional BCP: 8 years Family History: mother: lung cancer (smoker) Hormonal History: menarche: 14 , breast fed: no, age at first :18 menopause: 54 Surgical History: bilateral hip replacement gallbladder hysterectomy took ovaries, no cancer Medical History: depression diabetes Social History: nicotine: none alcohol: none drugs: none - Constitutional Constitutional: Denies chills, Denies fever - EENT Eyes: denies blurred vision, denies pain Ears: bilateral: decreased hearing, deny: tinnitus Ears, nose, mouth and throat: Denies headache, Denies sore throat - Breasts Breasts: bilateral: as per HPI - Cardiovascular Cardiovascular: Denies chest pain, Denies shortness of breath - Respiratory Respiratory: Reports cough - Gastrointestinal Gastrointestinal: Denies abdominal pain, Denies diarrhea, Denies nausea, Denies vomiting - Genitourinary (Female) Genitourinary: Denies dysuria, Denies hematuria - Menstruation Menstruation: Reports postmenopausal - Musculoskeletal Comment: uses a cane to walk Musculoskeletal: Reports myalgias - Integumentary Integumentary: Denies pruritus, Denies rash - Neurological Neurological: Denies numbness, Denies weakness - Psychiatric Psychiatric: Reports anxiety, Reports depression - Endocrine Comment: diabetes Endocrine: Reports fatigue - Hematologic/Lymphatic Comment: none - Allergic/Immunologic Allergic/Immunologic: Reports as per HPI Past Medical History Past Medical History: Diabetes Mellitus, Hyperlipidemia, Osteoarthritis (OA) Additional Past Medical History / Comment(s): Irregular heartbeat, Neuropoathy, Type 2 DM History of Any Multi-Drug Resistant Organisms: None Reported Past Surgical History: Breast Surgery, Cholecystectomy, Hysterectomy, Joint Replacement, Orthopedic Surgery Additional Past Surgical History / Comment(s): RIGHT AND LEFT TOTAL HIP, BREAST BIOPSY Past Anesthesia/Blood Transfusion Reactions: Postoperative Nausea & Vomiting (PONV) Past Psychological History: Anxiety, Depression Smoking Status: Never smoker Past Alcohol Use History: None Reported Past Drug Use History: None Reported - Past Family History Mother Family Medical History: No Reported History Medications and Allergies Home Medications Medication Instructions Recorded Confirmed Type buPROPion HCL [Wellbutrin SR] 150 mg PO BID 04/20/18 03/03/23 History Venlafaxine HCl ER [Effexor Xr] 75 mg PO DAILY 05/26/20 03/03/23 History Multivit with Calcium,Iron,Min 1 each PO DAILY 03/03/23 03/03/23 History [Women's Multivitamin] metFORMIN HCL [metFORMIN HCL ER 500 mg PO DAILY 03/03/23 03/03/23 History Osmotic] Allergies Allergy/AdvReac Type Severity Reaction Status Date / Time Penicillins AdvReac Rash/Hives Verified 03/03/23 13:08 Objective - Vital Signs Vital signs: Intake & Output 04/28/23 04/29/23 04/29/23 18:59 06:59 18:59 Weight 74.389 kg - Constitutional General appearance: Present: cooperative - EENT Eyes: Present: EOMI ENT: Present: hearing grossly normal - Neck Neck: Present: normal ROM - Respiratory Respiratory: bilateral: CTA - Cardiovascular Heart sounds: normal: S1, S2 - Gastrointestinal General gastrointestinal: Present: soft - Integumentary Integumentary: Present: normal turgor - Musculoskeletal Musculoskeletal: Present: gait normal - Psychiatric Psychiatric: Present: A&O x's 3, appropriate affect, intact judgment & insight - Additional findings Additional findings: Breast Exam: BRA: 42D Inspection: bilateral grade 3 ptosis Right breast: Slightly smaller than the left breast Palpation: Right breast: Multi-positional exam nodularity in the 3 o'clock position approximately 1-1-1/2 cm in size, no other dominant masses or nodules of concern, fibrocystic changes biopsy site no evidence of infection Right axilla: No adenopathy of concern Left breast: Multi-positional exam no dominant masses or nodules of concern Left axilla: No adenopathy of concern Assessment and Plan Assessment: Impression: Right breast stage IA T1 N0 M0 ER positive [place] positive HER-2/yenny negative grade 1 invasive ductal carcinoma Diabetes Bilateral hip replacement/uses a cane Plan: I have discussed treatment options with the patient and her daughter. We have discussed surgery, radiation oncology, and medical oncology. The surgical options of lumpectomy versus mastectomy were discussed. The patient would prefer to have a lumpectomy if possible. Additionally we have discussed axillary node surgery and the choosing wisely criteria and she would like to forego a sentinel node biopsy. Presentation of case at tumor board done on 04-12-23 Right breast needle localization lumpectomy with onco- plastic tissue transfer clearance with Dr. Pearce CC: Dr. Pearce
[2023-04-29 13:41] VITALS: BP 149/87; PULSE 80; RESP 18; TEMP 98.4
== END ==
LOC: WWCWWP 12:23
PROVIDERS: ATTEND Surgery
DX: C50.211 Malignant neoplasm of upper-inner quadrant of right female breast (principal); C50.911 Malignant neoplasm of unspecified site of right female breast; E11.9 Type 2 diabetes mellitus without complications; E78.5 Hyperlipidemia, unspecified; F32.A Depression, unspecified; F41.9 Anxiety disorder, unspecified; M19.90 Unspecified osteoarthritis, unspecified site; Z17.0 Estrogen receptor positive status [ER+]; Z80.1 Family history of malignant neoplasm of trachea, bronchus and lung; Z88.0 Allergy status to penicillin; Z90.49 Acquired absence of other specified parts of digestive tract; Z90.710 Acquired absence of both cervix and uterus; Z96.643 Presence of artificial hip joint, bilateral

== ENCOUNTER 2023-05-10 06:36 | Day surgery (SDC) | payer MEDICARE ==
[2023-05-05 14:58] VITALS: BMI 29.9
[~2023-05-10 06:36] MED LIST changes: +DEXAMETHASONE SOD PHOSPHATE 4 MG/ML 1 ML VIAL IV ONE; +HEPARIN SODIUM,PORCINE/PF 5,000 UNIT/0.5 ML SYRINGE SQ PRN; +ONDANSETRON 4 MG/2 ML VIAL IVP ONE; +Pre Op ABX Message 1 EACH MISC MISCELLANE ONE
[2023-05-10] MEDS ORDERED: fentaNYL (PF) 50 MCG/ML 2 ML AMP IV PRN (07:00)
[2023-05-10] MEDS ORDERED: ALPRAZolam 0.25 MG TAB PO PRN (07:00)
[2023-05-10 08:04] LABS: Glucose,Whole Blood 162 mg/dL (70-110)
[2023-05-10] MEDS ORDERED: LIDOCAINE 1% INJ 10MG/ML (20 ML MDV) SQ ONE (08:27)
[2023-05-10] MEDS ORDERED: SUCCINYLCHOLINE CHLORIDE 200 MG/10 ML VIAL IV ONE (08:55)
[2023-05-10] MEDS ORDERED: PROPOFOL 10 MG/ML 20 ML VIAL IV ONE (08:55)
[2023-05-10] MEDS ORDERED: PHENYLEPHRINE-0.9% NACL SYG 1,000 MCG/10 ML SYRINGE ONE (08:55)
[2023-05-10] MEDS ORDERED: fentaNYL (PF) 50 MCG/ML 2 ML AMP ONE (08:55)
[2023-05-10] MEDS ORDERED: LIDOCAINE 2% INJ 20 MG/ML (2 ML VIAL) ONE (08:55)
--- NOTE | 2023-05-10 09:14 | P.NAPBC ---
NAPBC Queries - NAPBC Queries Was patient's case review presented at [facility] tumor board? If no, comment.: Yes Was patient's pathology reviewed at [facility]? If no, comment.: Yes Was breast conservation surgery offered? If no, comment.: Yes Was sentinel node biopsy offered? If no, comment.: Yes (patient declined based on Choosing Wisely criteria) Was diagnosis confirmed by percutaneous core biopsy? If no, comment.: Yes Is patient mastectomy patient?: No Was a preop referral to reconstructive surgeon offered?: No Clinical Stage: stage IA invasive ductal right breast cancer, [id number]+Pr+Her2-G1
--- NOTE | 2023-05-10 10:03 | P.OP ---
Date of Procedure: 05/10/23 Preoperative Diagnosis: Invasive ductal carcinoma right breast Postoperative Diagnosis: Same Procedure(s) Performed: Right breast needle localization lumpectomy with onco-plastic tissue transfer 24 cm Anesthesia: GETA Surgeon: Lashawn Haider Estimated Blood Loss (ml): 5 IV fluids (ml): 400 Pathology: other (breast tissue) Condition: stable Disposition: same day Indications for Procedure: Biopsy-proven right breast invasive ductal carcinoma Operative Findings: Dense breast tissue Description of Procedure: The patient was first taken to the radiology department. In the radiology Department needle localization of the tumor was performed. The patient was then brought to the operative suite. Following induction of anesthesia the right breast was prepped and draped in a sterile fashion. An incision was made and carried down to the shaft of the needle. Surrounding tissue was excised. Posteriorly dissection was onto the pectoralis muscle. Anteriorly dissection was directly under the area of the skin and the plane between the subcutaneous tissue and the breast. The specimen was 4 x 2 cm in size. It was painted for orientation. Radiograph revealed the area of concern had been removed. Titanium clips were placed to deonte the cavity Superior pillar 4 x 2 cm was formed and inferior pillar 4 x 2 cm was formed. Total onco-palstic tissue transfer was 24 cm. The pillars were brought together using 3-0 Vicryl suture. Surgicel in powder form was placed. The subcutaneous tissue was closed using 3-0 Vicryl suture. The skin was closed using 4-0 Monocryl. Steri-Strips were applied. The patient tolerated the procedure in stable condition.
--- NOTE | 2023-05-10 10:06 | P.DS ---
Providers Attending physician: Lashawn Haider Primary care physician: Heraclio Pearce Plan - Discharge Summary Discharge Rx Participant: No New Discharge Prescriptions: New HYDROcodone/APAP 5-325MG [[place] 5] 1 - 2 each PO Q4H PRN #10 tab PRN Reason: Pain No Action buPROPion HCL [Wellbutrin SR] 150 mg PO BID Venlafaxine HCl ER [Effexor Xr] 75 mg PO DAILY metFORMIN HCL [metFORMIN HCL ER Osmotic] 500 mg PO DAILY Multivit with Calcium,Iron,Min [Women's Multivitamin] 1 each PO DAILY Cholecalciferol [Vitamin D3 (25 Mcg = 1000 Iu)] 25 mcg PO DAILY Discharge Medication List buPROPion HCL [Wellbutrin SR] 150 mg PO BID 04/20/18 [History] Venlafaxine HCl ER [Effexor Xr] 75 mg PO DAILY 05/26/20 [History] Multivit with Calcium,Iron,Min [Women's Multivitamin] 1 each PO DAILY 03/03/23 [History] metFORMIN HCL [metFORMIN HCL ER Osmotic] 500 mg PO DAILY 03/03/23 [History] Cholecalciferol [Vitamin D3 (25 Mcg = 1000 Iu)] 25 mcg PO DAILY 05/05/23 [History] HYDROcodone/APAP 5-325MG [[place] 5] 1 - 2 each PO Q4H PRN #10 tab 05/10/23 [Rx] Follow up Appointment(s)/Referral(s): Lashawn Haider MD [STAFF PHYSICIAN] - 1 Week Activity/Diet/Wound Care/Special Instructions: do not drive for 24 hours from discharge or if taking narcotic pain medicine Wear bra at all times May shower after 48 hours Discharge Disposition: HOME SELF-CARE
[2023-05-10 10:18] VITALS: TEMP 97.6
[2023-05-10 10:48] VITALS: RESP 16
[2023-05-10 11:45] VITALS: PULSE 92
[2023-05-10 12:43] VITALS: BP 121/73
--- NOTE | 2023-05-17 09:02 | MM ---
Pathology Description: Approach: Medial to Lateral Needle Type: 5 cm Kopan The procedure of needle localization with wire placement and than surgical excision was explained to the patient. Benefits, alternatives, and risks were discussed. An informed consent was then obtained. The shortest pathway for procedure was chosen. Shortest pathway was a medial approach. The overlying skin was prepped and draped in usual sterile fashion. Lidocaine was used as anesthetic into the skin and subcutaneous tissue up to the level of area of concern. A 5 cm Kopan's needle was used. It was placed via a medial approach under mammographic guidance. Subsequent 90 degrees mammogram show the needle to be in satisfactory position relative to the targeted area. At this point, wire was placed and the needle was withdrawn. The wire was fixed to patient's skin. Images were marked for surgeon. The patient tolerated the procedure well without any immediate complication. The patient was kept in the radiology department for short stay after the procedure and then taken to surgery for surgical excision. Targeted mass, 2 clips, and wire are identified in specimen mammogram. The patient was kept in hospital for short stay after the procedure and then discharged home in stable condition. IMPRESSION: Successful, uncomplicated needle localization with wire placement and surgical excision of medially located biopsy-proven right breast cancer; full pathology results to follow. Pathology Results: Result: Malignant, Invasive ductal carcinoma. RIGHT BREAST, LUMPECTOMY: Invasive well differentiated ductal carcinoma (Grade 1) and low grade DCIS, margins negative. See Surgical Pathology Cancer Case Summary. Overall Assessment: Malignant Management: Diagnostic Mammogram of the right breast in 6 months. Electronically signed and approved by: Lauryn Baker M.D. Radiologist
== END 2023-05-10 13:13 | disposition home or self-care (01) ==
LOC: OR 06:36
PROVIDERS: ATTEND Surgery
DX: C50.911 Malignant neoplasm of unspecified site of right female breast (principal); E11.9 Type 2 diabetes mellitus without complications; E78.5 Hyperlipidemia, unspecified; F41.9 Anxiety disorder, unspecified; F32.A Depression, unspecified; Z80.1 Family history of malignant neoplasm of trachea, bronchus and lung; Z96.643 Presence of artificial hip joint, bilateral; Z90.710 Acquired absence of both cervix and uterus; Z79.84 Long term (current) use of oral hypoglycemic drugs; Z88.0 Allergy status to penicillin; Z79.899 Other long term (current) drug therapy; Z90.49 Acquired absence of other specified parts of digestive tract
CPT/HCPCS: 19301; 14000; 88307; 76098; 19281; C1819; J0330; J1100; J2405; J2001 ×2; J3010; J2370; J2704; J1644

== ENCOUNTER → 2023-05-19 | Outpatient (CLI) | payer MEDICARE ==
[2023-05-19 15:06] VITALS: BP 136/82; PULSE 86; RESP 18; TEMP 98.2
--- NOTE | 2023-05-19 15:10 | P.PN ---
Progress Note - Text Progress Note Date: 05/19/23 Ashley is post op right breast lumpectomy on 05-10-23. She had a 13 mm invasive ductal cancer and DCIS. Margins were (-). She had genetic testing results are pending. Examination: Lungs: Clear Heart: Regular rate and rhythm Incision: Clean and dry Plan: Await genetic testing Follow-up medical oncology Follow-up radiation oncology Follow-up in 4 months CC: DR. Pearce
== END ==
LOC: WWCWWP 14:11
PROVIDERS: ATTEND Surgery
DX: D05.11 Intraductal carcinoma in situ of right breast (principal); Z90.11 Acquired absence of right breast and nipple; Z80.0 Family history of malignant neoplasm of digestive organs

== ENCOUNTER → 2023-07-05 | Outpatient (CLI) | payer MEDICARE ==
--- NOTE | 2023-07-05 21:10 | BD ---
EXAMINATION TYPE: Axial Bone Density DATE OF EXAM: 07/05/2023 CLINICAL HISTORY: 77 years old Female. ICD-10 CODE: M85.9 DISORDER OF BONE DENSITY AND STRUCTURE, UN SP Height: 60 Weight: 165.4 FRAX RISK QUESTIONS: Alcohol (3 or more units per day): no Family History (Parent hip fracture): no Glucocorticoids (More than 3mos): no History of Fracture in Adulthood: no Secondary Osteoporosis: 1. Type 1 Diabetes: no 2. Hyperthyroidism: no 3. Menopause before 45: yes 4. Malnutrition: no 5. Chronic liver disease: no Rheumatoid Arthritis: no Current Tobacco Use: no RISK FACTORS HISTORY OF: Hip Fracture (Right/Left): no Spine Fracture: no History of Wrist Fracture: no Surgery to Spine/Hip(right/left)/Wrist (right/left): Bilateral Hip Replacement When: 2012, 2013 Family History of Osteoporosis: no Active: no Diet low in dairy products/other sources of calcium: no Postmenopausal woman: yes Take estrogen and/or progesterone medications: no Lost more than 2 inches in height since high school: yes Frequent falls: no Poor Health: no Hyperparathyroidism: no Adrenal Insufficiency: no MEDICATIONS: Prednisone or other steroids: no Thyroid Medications: no Osteoporosis Medications: no Additional Medications: Depression meds, Vit D, Metformin, Additional History: Breast Ca. 2022 EXAM MEASUREMENTS: Bone mineral densitometry was performed using the Emair System. Bone mineral density as measured about the Lumbar spine is: ----- L1-L4(G/cm2): 1.284 T Score Values are as follows: ----- L1: 0.1 ----- L2: -0.1 ----- L3: 1.3 ----- L4: 1.6 ----- L1-L4: 0.9 Z Score Values are as follows: ----- L1: 1.6 ----- L2: 1.3 ----- L3: 2.8 ----- L4: 3.1 ----- L1-L4: 2.3 Baseline Study Bone mineral density about the L Wrist (g/cm2): 0.631 T Score values are as follows: -----Dist. R+U: -0.6 -----Prox. R+U: -0.2 -----Radius total: -0.7 Z Score values are as follows: -----Dist. R+U: 1.58 -----Prox. R+U: 2.2 -----Radius total: 1.7 Baseline Study FRAX%s: The graph provided illustrates a % chance for a major osteoporotic fx and a % chance for the hips probability for fx in 10 years time. Hips were not scanned, no FRAX'S given IMPRESSION: Normal (Values between +1 and -1 indicate normal bone mass). Consider repeating this study in 5 year s or sooner if there is some new clinical indication. NOTE: T-SCORE=SD OF THE YOUNG ADULT MEAN.
== END | disposition home or self-care (01) ==
LOC: RADBDWWP 15:40
PROVIDERS: ATTEND Internal Medicine
DX: M85.9 Disorder of bone density and structure, unspecified (principal); C50.411 Malignant neoplasm of upper-outer quadrant of right female breast; E11.9 Type 2 diabetes mellitus without complications; M10.9 Gout, unspecified; M12.9 Arthropathy, unspecified; Z78.0 Asymptomatic menopausal state
CPT/HCPCS: 77080

== ENCOUNTER 2023-09-01 08:57 | Emergency (ER) | payer MEDICARE ==
[2023-09-01 09:17] VITALS: BP 158/79; PULSE 98; RESP 18; TEMP 97.8
--- NOTE | 2023-09-01 09:57 | ED ---
General Adult HPI - General Chief complaint: Extremity Problem,Nontraumatic Stated complaint: med reaction Time Seen by Provider: 09/01/23 09:25 Source: patient, RN notes reviewed, old records reviewed Mode of arrival: ambulatory Limitations: no limitations - History of Present Illness Initial comments: This is a 78-year-old female presents emergency Department complaining that she has a little bit of upper right arm pain. Patient states she started Cipro 2 days ago and she read the side effects after she started taking a and one of them was joint pain and then she started noticing she's having a little joint pain or right upper arm. Patient denies any injury patient denies any swelling patient denies any redness. Patient denies any distal pain or problems. Patient states it only hurts a little but and she has never taken Cipro before. Patient is concerned that is the medication. Patient is having no other problems or issues. Patient denies chest pain difficulty breathing shortest breath. Patient states the pain is a reproducible on palpation to the anterior shoulder. - Related Data Home Medications Medication Instructions Recorded Confirmed buPROPion HCL [Wellbutrin SR] 150 mg PO BID 04/20/18 05/19/23 Venlafaxine HCl ER [Effexor Xr] 75 mg PO DAILY 05/26/20 05/19/23 Multivit with Calcium,Iron,Min 1 each PO DAILY 03/03/23 05/19/23 [Women's Multivitamin] metFORMIN HCL [metFORMIN HCL ER 500 mg PO DAILY 03/03/23 05/19/23 Osmotic] Cholecalciferol [Vitamin D3 (25 25 mcg PO DAILY 05/05/23 05/19/23 Mcg = 1000 Iu)] Previous Rx's Medication Instructions Recorded Nitrofurantoin Monohyd/M-Cryst 100 mg PO Q12HR #14 cap 09/01/23 [Macrobid] Allergies Allergy/AdvReac Type Severity Reaction Status Date / Time Penicillins AdvReac Rash/Hives Verified 09/01/23 09:10 Review of Systems ROS Statement: Those systems with pertinent positive or pertinent negative responses have been documented in the HPI. ROS Other: All systems not noted in ROS Statement are negative. Past Medical History Past Medical History: Cancer, Diabetes Mellitus, Hyperlipidemia, Osteoarthritis (OA) Additional Past Medical History / Comment(s): Irregular heartbeat, Neuropoathy, Type 2 DM, RT BREAST CANCER History of Any Multi-Drug Resistant Organisms: None Reported Past Surgical History: Breast Surgery, Cholecystectomy, Hysterectomy, Joint Replacement, Orthopedic Surgery Additional Past Surgical History / Comment(s): RIGHT AND LEFT TOTAL HIP, BREAST BIOPSY , COLONOSCOPY, TRIGGER THUMB, BILAT CATARACTS REMOVED WITH LENS IMPLANTS Past Anesthesia/Blood Transfusion Reactions: Postoperative Nausea & Vomiting (PONV) Past Psychological History: Anxiety, Depression Smoking Status: Never smoker Past Alcohol Use History: None Reported Past Drug Use History: None Reported - Past Family History Mother Family Medical History: No Reported History General Exam - General Exam Comments Initial Comments: GENERAL Patient is well-developed and well-nourished. Patient is in mild distress. EYES Patient's pupils are equal and round. Extraocular motion is intact SKIN Unremarkable NEURO The patient is alert and oriented 3 PYSCH Patient has normal interpersonal interactions. MUSCULOSKELETAL Full range of motion of the shoulder. There is some tenderness in the anterior area of the shoulder to palpation. Patient has no redness no swelling she has good cap refill there is no edema. Limitations: no limitations Course Vital Signs 09/01/23 09:10 Temperature 97.8 F Pulse Rate 98 Respiratory 18 Rate Blood Pressure 158/79 O2 Sat by Pulse 99 Oximetry Medical Decision Making - Medical Decision Making Was pt. sent in by a medical professional or institution (, PA, FRONT END TECHNICIAN, urgent care, hospital, or retirement...) When possible be specific @ -No Did you speak to anyone other than the patient for history (EMS, parent, family, police, friend...)? What history was obtained from this source @ -[No] Did you review nursing and triage notes (agree or disagree)? Why? @ -[I reviewed and agree with nursing and triage notes] Were old charts reviewed (outside hosp., previous admission, EMS record, old EKG, old radiological studies, urgent care reports/EKG's, retirement records)? Report findings @ -[No old charts were reviewed] Differential Diagnosis (chest pain, altered mental status, abdominal pain women, abdominal pain men, vaginal bleeding, weakness, fever, dyspnea, syncope, headache, dizziness, GI bleed, back pain, seizure, CVA, palpatations, mental health, musculoskeletal)? @ -Medication reaction, DVT, muscle strain, fracture this is not an all inclusive list EKG interpreted by me (3pts min.). @ -[As above] X-rays interpreted by me (1pt min.). @ -[None done] CT interpreted by me (1pt min.). @ -[None done] U/S interpreted by me (1pt. min.). @ -[None done] What testing was considered but not performed or refused? (CT, X-rays, U/S, l abs)? Why? @ -[None] What meds were considered but not given or refused? Why? @ -[None] Did you discuss the management of the patient with other professionals (professionals i.e. , PA, FRONT END TECHNICIAN, lab, RT, psych nurse, social welfare research worker, advertising production manager, teacher, animal park code enforcement officer, case resource manager)? Give summary @ -[No] Was smoking cessation discussed for >3mins.? @ -[No] Was critical care preformed (if so, how long)? @ -[No] Were there social determinants of health that impacted care today? How? (Homelessness, low income, unemployed, alcoholism, drug addiction, transportation, low edu. Level, literacy, decrease access to med. care, [facility], rehab)? @ -[No] Was there de-escalation of care discussed even if they declined (Discuss DNR or withdrawal of care, Hospice)? DNR status @ -[No] What co-morbidities impacted this encounter? (DM, HTN, Smoking, COPD, CAD, Cancer, CVA, ARF, Chemo, Hep., AIDS, mental health diagnosis, sleep apnea, morbid obesity)? @ -[None] Was patient admitted / discharged? Hospital course, mention meds given and route, prescriptions, significant lab abnormalities, going to OR and other p ertinent info. @ -Patient's arm had full range of motion there was point tenderness in the anterior aspect of the shoulder was no bruising no redness no swelling she could Refill. Patient had no chest pain or difficulty breathing patient seemed fairly anxious and worried that the Cipro was causing her this pain and she was looking to get a different prescription. Undiagnosed new problem with uncertain prognosis? @ -[No] Drug Therapy requiring intensive monitoring for toxicity (Heparin, Nitro, Insulin, Cardizem)? @ -[No] Were any procedures done? @ -[No] Diagnosis/symptom? @ -Medication reaction Acute, or Chronic, or Acute on Chronic? @ -Acute Uncomplicated (without systemic symptoms) or Complicated (systemic symptoms)? @ -Uncomplicated Side effects of treatment? @ -None Exacerbation, Progression, or Severe Exacerbation? @ -[No] Poses a threat to life or bodily function? How? (Chest pain, [place], DC, pneumonia, PE, COPD, DKA, ARF, appy, cholecystitis, CVA, Diverticulitis, Homicidal, Suicidal, threat to staff... and all critical care pts) @ -[No] Disposition Clinical Impression: Medication reaction Disposition: HOME SELF-CARE Condition: Good Instructions (If sedation given, give patient instructions): Antibiotic Medication Allergy (ED) Additional Instructions: Patient should stop Cipro and start Macrobid as prescribed Prescriptions: Nitrofurantoin Monohyd/M-Cryst [Macrobid] 100 mg PO Q12HR #14 cap Is patient prescribed a controlled substance at d/c from ED?: No Referrals: Heraclio Pearce DO [Primary Care Provider] - 1-2 days Time of Disposition: 09:56
== END 2023-09-01 10:10 | disposition home or self-care (01) ==
LOC: EC 08:57
DX: M79.621 Pain in right upper arm (principal); T36.8X5A Adverse effect of other systemic antibiotics, initial encounter; M19.90 Unspecified osteoarthritis, unspecified site; E11.9 Type 2 diabetes mellitus without complications; F32.A Depression, unspecified; F41.9 Anxiety disorder, unspecified; Z88.0 Allergy status to penicillin; Z79.84 Long term (current) use of oral hypoglycemic drugs; Z79.899 Other long term (current) drug therapy
CPT/HCPCS: 99283

== ENCOUNTER → 2023-09-09 | Outpatient (CLI) | payer MEDICARE ==
--- NOTE | 2023-09-09 15:30 | P.PN ---
Subjective Progress Note Date: 09/09/23 right breast stage IA invasive ductal cancer History of Present Illness H&P Date: 04-29-23 Chief Complaint: Right breast stage IA invasive ductal carcinoma, T1 N0 M0 G1 ER+Pr+Her2- Ashley is a 78-year-old white female seen in consultation for Dr. Pearce regarding a right breast invasive ductal carcinoma. She underwent a bilateral screening mammogram on 332. This led to additional views of the right breast [place] [address], and an ultrasound be performed on 45. No lesions of concern were noted in the left breast. In the right breast a 0.9 cm round mass was identified. Although she had undergone a core biopsy in the vicinity in 2001 repeat biopsy was recommended. This was performed on . Core biopsy revealed invasive ductal carcinoma which was ER/NH positive and HER-2 negative. She cannot feel any lumpsor nodules of concern in either breast. She does feel some nodularity now in the right breast related to the prior ultrasound core biopsy. She has not had any surgery on her breast. She did have a core biopsy in 2001 on the right breast which was benign. She has not had any recent trauma or infection in the breast. She is not complaining of any nipple discharge or skin changes. The patient's case was [place] at [facility] and [id number]. Recommendation was for needle localization and lumpectomy. No sentinel node biopsy was recommended. The patient will follow with medical and radiation oncology. The patient has been called and this has been discussed with her and her OR date is set at 05/10/2023. post lumpectomy on 05-19-23 all margins (-), 13 mm invasive ductal cancer right breast note radiation oncology 08-24-23 finished 07-15-23 note medical oncology: 06-28-23: plan on adjuvant endocrine therapy started two weeks ago, Due for a bilateral mammogram in January 2024 Caffeine: occasional nicotine: none chocolate: occasional BCP: 8 years Family History: mother: lung cancer (smoker) Hormonal History: menarche: 14 , breast fed: no, age at first :18 menopause: 54 Surgical History: bilateral hip replacement gallbladder hysterectomy took ovaries, no cancer Medical History: depression diabetes Social History: nicotine: none alcohol: none drugs: none - Constitutional Constitutional: Denies chills, Denies fever - EENT Eyes: denies blurred vision, denies pain Ears: bilateral: decreased hearing, deny: tinnitus Ears, nose, mouth and throat: Denies headache, Denies sore throat - Breasts Breasts: bilateral: as per HPI - Cardiovascular Cardiovascular: Denies chest pain, Denies shortness of breath - Respiratory Respiratory: Reports cough - Gastrointestinal Gastrointestinal: Denies abdominal pain, Denies diarrhea, Denies nausea, Denies vomiting - Genitourinary (Female) Genitourinary: Denies dysuria, Denies hematuria - Menstruation Menstruation: Reports postmenopausal - Musculoskeletal Comment: uses a cane to walk Musculoskeletal: Reports myalgias - Integumentary Integumentary: Denies pruritus, Denies rash - Neurological Neurological: Denies numbness, Denies weakness - Psychiatric Psychiatric: Reports anxiety, Reports depression - Endocrine Comment: diabetes Endocrine: Reports fatigue - Hematologic/Lymphatic Comment: none - Allergic/Immunologic Allergic/Immunologic: Reports as per HPI Past Medical History Past Medical History: Diabetes Mellitus, Hyperlipidemia, Osteoarthritis (OA) Additional Past Medical History / Comment(s): Irregular heartbeat, Neuropoathy, Type 2 DM History of Any Multi-Drug Resistant Organisms: None Reported Past Surgical History: Breast Surgery, Cholecystectomy, Hysterectomy, Joint Replacement, Orthopedic Surgery Additional Past Surgical History / Comment(s): RIGHT AND LEFT TOTAL HIP, BREAST BIOPSY Past Anesthesia/Blood Transfusion Reactions: Postoperative Nausea & Vomiting (PONV) Past Psychological History: Anxiety, Depression Smoking Status: Never smoker Past Alcohol Use History: None Reported Past Drug Use History: None Reported - Past Family History Mother Family Medical History: No Reported History Medications and Allergies Home Medications Medication Instructions Recorded Confirmed Type buPROPion HCL [Wellbutrin SR] 150 mg PO BID 04/20/18 03/03/23 History Venlafaxine HCl ER [Effexor Xr] 75 mg PO DAILY 05/26/20 03/03/23 History Multivit with Calcium,Iron,Min 1 each PO DAILY 03/03/23 03/03/23 History [Women's Multivitamin] metFORMIN HCL [metFORMIN HCL ER 500 mg PO DAILY 03/03/23 03/03/23 History Osmotic] Allergies Allergy/AdvReac Type Severity Reaction Status Date / Time Penicillins AdvReac Rash/Hives Verified 03/03/23 13:08 Objective - Vital Signs Vital signs: Intake & Output 09/08/23 09/09/23 09/09/23 18:59 06:59 18:59 Weight 76.204 kg - Constitutional General appearance: Present: cooperative - EENT Eyes: Present: EOMI ENT: Present: hearing grossly normal - Neck Neck: Present: normal ROM - Respiratory Respiratory: bilateral: CTA - Cardiovascular Heart sounds: normal: S1, S2 - Gastrointestinal General gastrointestinal: Present: soft - Integumentary Integumentary: Present: normal turgor - Musculoskeletal Musculoskeletal Comment(s): uses a cane - Psychiatric Psychiatric: Present: A&O x's 3, appropriate affect, intact judgment & insight - Additional findings Additional findings: Breast Exam: BRA: 42D Inspection: bilateral grade 3 ptosis Right breast: Slightly smaller than the left breast Palpation: Right breast: post surgical and fibrocystic changes, post radiation changes Right axilla: No adenopathy of concern Left breast: Multi-positional exam no dominant masses or nodules of concern Left axilla: No adenopathy of concern Assessment and Plan Assessment: Impression: Right breast stage IA T1 N0 M0 ER positive NH positive HER-2/yenny negative grade 1 invasive ductal carcinoma Diabetes Bilateral hip replacement/uses a cane Patient on adjuvant endocrine therapy as per medical oncology Plan: Bilateral mammogram in January 2024 with appointment at that time Continue to follow with medical oncology Continue to follow with radiation oncology CC: Dr. Pearce
[2023-09-09 15:37] VITALS: BP 157/84; PULSE 100; RESP 18; TEMP 97.9
== END ==
LOC: WWCWWP 15:05
PROVIDERS: ATTEND Surgery
DX: C50.911 Malignant neoplasm of unspecified site of right female breast (principal); E11.9 Type 2 diabetes mellitus without complications; E78.5 Hyperlipidemia, unspecified; F32.A Depression, unspecified; F41.9 Anxiety disorder, unspecified; M19.90 Unspecified osteoarthritis, unspecified site; Z17.0 Estrogen receptor positive status [ER+]; Z88.0 Allergy status to penicillin; Z96.643 Presence of artificial hip joint, bilateral; Z79.84 Long term (current) use of oral hypoglycemic drugs